=== PATIENT | male | born 1985 | race Caucasian/White ===

== ENCOUNTER 2018-07-17 18:20 | Emergency (ER) | payer MEDICAID ==
[~2018-07-17] VITALS: Ht 195.6 cm; Wt 96.0 kg
[2018-07-17 18:34] VITALS: BP 132/88
[2018-07-17] MEDS ORDERED: ESCI20TA PO (18:40)
[2018-07-17] MEDS ORDERED: BUPR150T8 PO (18:40)
== END 2018-07-17 18:53 | disposition home or self-care (01) ==
LOC: ER 18:20
DX: F32.9 Major depressive disorder, single episode, unspecified (principal); Z76.0 Encounter for issue of repeat prescription; Z79.899 Other long term (current) drug therapy
CPT/HCPCS: 99283

== ENCOUNTER 2018-09-11 18:57 | Emergency (ER) | payer MEDICAID ==
[~2018-09-11] VITALS: Ht 195.6 cm; Wt 133.5 kg
[~2018-09-11 18:57] MED LIST: ESCI20TA PO
[2018-09-11 19:29] VITALS: BP 132/86
[2018-09-11] MEDS ORDERED: BENZ-16 PO (20:24)
[2018-09-11] MEDS ORDERED: INHA1INH2 (20:24)
[2018-09-11] MEDS ORDERED: ALBU18HF2 INH (20:24)
[2018-09-11] MEDS ORDERED: ipratropium/albuterol 3ml nebule NEB ONE (20:25)
[2018-09-11] MEDS ORDERED: benzonatate 100mg capsule PO ONE (20:25)
--- NOTE | 2018-09-11 20:35 | NUR ---
PT BACK FROM XRAY
== END 2018-09-12 | disposition home or self-care (01) ==
LOC: ER 09-12 06:10
DX: J06.9 Acute upper respiratory infection, unspecified (principal); J98.01 Acute bronchospasm; Z79.899 Other long term (current) drug therapy
CPT/HCPCS: 71046; 94640; 94760; 99283

== ENCOUNTER 2019-01-17 13:19 | Emergency (ER) | payer MEDICAID, OTHER ==
[~2019-01-17] VITALS: Ht 195.6 cm; Wt 118.0 kg
[~2019-01-17 13:19] MED LIST changes: +ALBU18HF2 INH; +INHA1INH2
[2019-01-17 13:24] VITALS: BP 121/88
[2019-01-17] MEDS ORDERED: QUET-1 PO (14:45)
== END 2019-01-17 14:55 | disposition home or self-care (01) ==
LOC: ER 13:20
DX: F32.9 Major depressive disorder, single episode, unspecified (principal); Z76.0 Encounter for issue of repeat prescription; Z79.899 Other long term (current) drug therapy
CPT/HCPCS: 99283

== ENCOUNTER 2020-07-16 14:20 | Outpatient (CLI) | payer MEDICAID ==
[~2020-07-16 14:20] MED LIST changes: +QUET-1 PO
[2020-07-16] MEDS ORDERED: BUPR300T86 PO (15:19)
[2020-07-16] MEDS ORDERED: TIZA4TAB5 PO (15:39)
[2020-07-16] MEDS ORDERED: MELO-102 PO (15:39)
[2020-07-16] MEDS ORDERED: METH20TA PO (15:39)
[2020-07-16 16:00] LABS: BASOPHILS % (AUTO) 0.9 % (0-1); EOSINOPHILS # (AUTO) 0.1 X10'3 (0-0.9); MEAN CORPUSCULAR VOLUME 94.2 FL (78-98); MONOCYTES # (AUTO) 0.5 X10'3 (0-0.9)
[2020-07-16 16:02] LABS: EOSINOPHILS % (AUTO) 1.3 % (0-6); LYMPHOCYTES # (AUTO) 1.8 X10'3 (1.1-4.8); MEAN CORPUSCULAR HEMOGLOBIN 31.9 PG (27.0-31.0); MEAN CORPUSCULAR HGB CONC 33.9 g/dL (33.0-36.5); MEAN PLATELET VOLUME 10.5 FL (7.4-10.4); MONOCYTES % (AUTO) 10.6 % (2-12); NEUTROPHILS # (AUTO) 2.3 X10'3 (1.8-7.7); NEUTROPHILS % (AUTO) 49.2 % (42-75); PRE OP HEMATOCRIT 44.2 % (42.0-52.0); PRE OP PLATELET COUNT 182 X10'3 (140-440); RED BLOOD COUNT 4.69 X10'6 (4.70-6.10); RED CELL DISTRIBUTION WIDTH 12.4 % (11.5-14.5)
[2020-07-16 16:16] LABS: ALBUMIN 4.1 G/DL (3.4-5.0); ALBUMIN/GLOBULIN RATIO 1.1 (1.1-1.5); ALKALINE PHOSPHATASE 70 IU/L (46-116); BLOOD UREA NITROGEN 22 MG/DL (7-18); BUN/CREATININE RATIO 16.2 (5.4-32.0); CHLORIDE 104 MMOL/L (99-107); CREATININE 1.36 MG/DL (0.60-1.10); PRE OP ALT 28 U/L (30-65); PRE OP ANION GAP 5 (8-16); PRE OP AST 14 U/L (10-37); PRE OP BILIRUB, TOTAL 0.6 MG/DL (0.0-1.0); PRE OP GLUCOSE 91 MG/DL (70-104); PRE OP POTASSIUM 4.6 MMOL/L (3.4-5.1); PRE OP SODIUM 140 MMOL/L (135-145); TOTAL PROTEIN 7.8 G/DL (6.4-8.2); eGFR 60 ML/MIN
== END 2020-07-16 23:59 | disposition home or self-care (01) ==
LOC: PRE-OP 14:20 → EDSTATUS 07-22 08:45
PROVIDERS: ATTEND Orthopaedic Surgery
DX: Z01.812 Encounter for preprocedural laboratory examination (principal); S43.431D Superior glenoid labrum lesion of right shoulder, subsequent encounter; M75.41 Impingement syndrome of right shoulder; M19.011 Primary osteoarthritis, right shoulder; M75.42 Impingement syndrome of left shoulder; M25.332 Other instability, left wrist; F41.9 Anxiety disorder, unspecified; M54.42 Lumbago with sciatica, left side; F32.9 Major depressive disorder, single episode, unspecified; R76.8 Other specified abnormal immunological findings in serum; E66.8 Other obesity; X58.XXXD Exposure to other specified factors, subsequent encounter; Z20.828 Contact with and (suspected) exposure to other viral communicable diseases
CPT/HCPCS: 36415; 80053; 85025; 87635; 93005

== ENCOUNTER 2021-04-18 16:46 | Emergency (ER) | payer MEDICAID ==
[~2021-04-18] VITALS: Ht 195.6 cm; Wt 100.0 kg
[~2021-04-18 16:46] MED LIST changes: -ALBU18HF2 INH; +BUPR300T86 PO; -ESCI20TA PO; -INHA1INH2; +MELO-102 PO; +METH20TA PO; -QUET-1 PO; +TIZA4TAB5 PO
[2021-04-18 17:01] VITALS: BP 115/79
== END 2021-04-18 19:08 | disposition home or self-care (01) ==
LOC: ER 16:46
DX: J02.9 Acute pharyngitis, unspecified (principal); F32.9 Major depressive disorder, single episode, unspecified; Z79.899 Other long term (current) drug therapy
CPT/HCPCS: 87081; 87880; 99283

== ENCOUNTER 2021-04-20 11:30 | Outpatient (CLI) | payer MEDICAID ==
[2021-04-20] MEDS ORDERED: diatrizoate meglumine 300mg/ml (30%) 300ml UR ONE (14:00)
== END 2021-04-20 23:59 | disposition home or self-care (01) ==
LOC: RAD 11:30 → EDSTATUS 11:30 → RAD 23:59
PROVIDERS: ATTEND Nurse Practitioner Family
DX: N39.8 Other specified disorders of urinary system (principal)
CPT/HCPCS: 74450; Q9958

== ENCOUNTER 2021-12-29 20:44 | Emergency (ER) | payer MEDICAID ==
[~2021-12-29] VITALS: Ht 195.6 cm; Wt 104.5 kg
[~2021-12-29 20:44] MED LIST changes: +TIZA-205 PO; -TIZA4TAB5 PO
[2021-12-29 21:01] VITALS: BP 108/82
[2021-12-30] MEDS ORDERED: ANBESOL TP (00:23)
== END 2021-12-30 00:49 | disposition home or self-care (01) ==
LOC: ER 20:46
DX: K12.0 Recurrent oral aphthae (principal); F32.A Depression, unspecified; Z79.899 Other long term (current) drug therapy
CPT/HCPCS: 99282; 99283

== ENCOUNTER 2023-03-05 16:55 | Emergency (ER) | payer MEDICAID ==
[~2023-03-05] VITALS: Ht 195.6 cm; Wt 110.2 kg
[2023-03-05 17:13] VITALS: BP 131/72; PULSE 88; RESP 16; TEMP 99.3; O2SAT 96
[2023-03-05] MEDS ORDERED: IBUP-1984 PO (19:00)
[2023-03-05] MEDS ORDERED: NEOM10SO7 LEFT EAR (19:00)
== END 2023-03-05 19:13 | disposition home or self-care (01) ==
LOC: ER 16:55
DX: H60.92 Unspecified otitis externa, left ear (principal); L85.3 Xerosis cutis; Z79.899 Other long term (current) drug therapy
CPT/HCPCS: 99283

== ENCOUNTER → 2023-11-24 | Outpatient (CLI) | payer MEDICAID ==
[~2023-11-24] MED LIST changes: +BUPR-564 PO; -BUPR300T86 PO; +NEOM10SO7 LEFT EAR
== END | disposition home or self-care (01) ==
LOC: MRI 12:55
PROVIDERS: ATTEND Nurse Practitioner Family
DX: M51.37 Other intervertebral disc degeneration, lumbosacral region (principal); M25.452 Effusion, left hip; M25.451 Effusion, right hip; M54.50 Low back pain, unspecified; R10.2 Pelvic and perineal pain
CPT/HCPCS: 72148; 72195

== ENCOUNTER 2024-03-06 06:47 | Outpatient (CLI) | payer MEDICAID ==
[~2024-03-06 06:47] MED LIST changes: +GADOTERATE MEGLUMINE 7.5 MMOL/15 ML VIAL IV ONE; +LIDOcaine 1% 30ml preserv. free vial ONE; +LIDOcaine 1%/PF 5ML 10 MG/ML VIAL ONE; +iohexol 300 MG/1 ML 50ml polymer ONE
== END 2024-03-06 23:59 | disposition home or self-care (01) ==
LOC: RAD 06:47
PROVIDERS: ATTEND Family Medicine
DX: M25.551 Pain in right hip (principal); M76.01 Gluteal tendinitis, right hip; M25.451 Effusion, right hip; Z79.899 Other long term (current) drug therapy
CPT/HCPCS: 27093; 73722; 77002; A9575; J3490; Q9967; 73525

== ENCOUNTER 2024-03-14 06:42 | Outpatient (CLI) | payer MEDICAID | END 2024-03-14 23:59 | disposition home or self-care (01) | LOC: RAD 06:42 | PROVIDERS: ATTEND Family Medicine | DX: R10.2 Pelvic and perineal pain (principal); M25.452 Effusion, left hip; M25.852 Other specified joint disorders, left hip; Z79.899 Other long term (current) drug therapy; Z98.890 Other specified postprocedural states | CPT/HCPCS: 27093; 73722; 77002; A9575; J3490; Q9967; 73525 ==